=== PATIENT | male | born 1985 | race Caucasian/White ===

== ENCOUNTER 2025-03-28 17:40 | Emergency (ER) | payer OTHER ==
[~2025-03-28] VITALS: Ht 182.9 cm; Wt 90.9 kg
[2025-03-28 17:42] VITALS: TEMP 98.5
--- NOTE | 2025-03-28 18:56 | Physician Documentation ---
History of Present Illness ~ Chief Complaint: Dizziness Stated Complaint: VERTIGO Time Seen by MD: 18:55 Mode of Arrival: Ambulatory HPI Patient presents to the emergency room chief complaint of vertigo. He states he woke up Wednesday in his soon as he got up the room was spinning. He was seen in we have reveal prescribed Antivert and given a diagnosis of benign positional ve rtigo. He states he is fine when he is sitting still that has just when he moves his head that has symptoms occur. He reports no significant help with Antivert and has been trying the Nataly maneuver at home without success. Medication Reconciliation Allergies: Coded Allergies: No Known Allergies (Unverified , 03/28/25) Review of Systems ROS All review of systems negative except as per HPI Physical Exam Vital Signs: Temperature: 98.5, Source: Temporal, Heart Rate: 94, Respiratory Rate: 14, BP: 148/91, Pulse Oximetry: 99, Weight: 90.900 Oxygen Flow Rate: 0 Physical Exam General: Patient is awake, alert, oriented x4 in no acute distress and well appearing.~ Head: Normocephalic and atraumatic. Eyes: Conjunctival normal. EOMI. PERRL. ENT: Mucous membranes moist. Neck: Supple, trachea is midline. Chest: Clear to auscultation bilaterally without rales, rhonchi, or wheezes. There is no accessory muscle use or retractions. Cardiac: RRR without murmurs, gallops, or rubs. Neuro: Cranial nerves II-XII grossly intact. No focal neuro deficits. Positive Devi-Hallpike. Progress Results/Orders Results/Orders Vital Signs 03/28/25 03/28/25 17:42 17:56 Temp 98.5 Pulse 94 Resp 16 14 B/P (MAP) 148/91 Pulse Ox 99 O2 Flow Rate 0 Medical Decision Making Additional information obtaine: N/A Findings Patient presented to the emergency room with chief complaint of vertigo. Differentials include but are not limited to benign positional vertigo, labyrinthitis, vestibular neuritis, stroke. Given classic symptoms of benign positional vertigo I do not feel emergent labs or imaging is necessary. I will refer him to [facility] and give him additional prescription for Antivert. Differential Dx:Considerations: Include: anemia, CVA, dehydration, dysrhythmia, electrolyte imbalance, encephalopathy, Guillain-Houghton, hypoglycemia, hypotension, hypovolemia, labyrinthitis, Meniere's disease, myasathenia gravis, myocardial infarction, pulmonary embolus, renal failure, respiratory failure, TIA, VBI, vertigo central, vertigo peripheral, vestibular neuronitis, other Departure Disposition: 01 HOME / SELF CARE / HOMELESS Impression: Primary Impression: Benign positional vertigo Condition: Stable Discharge Instructions: Benign Positional Vertigo Additional Instructions: Call the pasquale sent her tomorrow and inquire about tilt-table for benign positional vertigo. Continue working with the Nataly maneuver in the meantime [facility] [address] [place] [id number] Email: [email or web address] Referrals: NO PRIMARY CARE PROVIDER (PCP) Signature Scribe Signature: No scribe Attestation: The note accurately reflects work and decisions made by me.Tom Jorgensen MD 03/28/25 19:07 TOM JORGENSEN MD Mar 28, 2025 18:55
[2025-03-28] MEDS ORDERED: MECL-226 PO (19:08)
[2025-03-28 19:58] VITALS: BP 127/88; PULSE 86; RESP 20; O2SAT 98
== END 2025-03-28 20:01 | disposition home or self-care (01) ==
LOC: ER 17:42
DX: H81.10 Benign paroxysmal vertigo, unspecified ear (principal)
CPT/HCPCS: 99282